=== PATIENT | female | born 2000 | race Two or more races ===

== ENCOUNTER 2024-11-19 11:18 | Outpatient (CLI) | payer OTHER | END 2024-11-19 11:28 | disposition home or self-care (01) | LOC: PRENATAL 11:18 | PROVIDERS: ATTEND Obstetrics & Gynecology Maternal & Fetal Medicine | DX: O26.849 Uterine size-date discrepancy, unspecified trimester (principal); O99.019 Anemia complicating pregnancy, unspecified trimester; Z14.8 Genetic carrier of other disease; O34.219 Maternal care for unspecified type scar from previous cesarean delivery; Z3A.17 17 weeks gestation of pregnancy ==

== ENCOUNTER 2024-12-09 11:22 | Outpatient (CLI) | payer OTHER | END 2024-12-09 11:23 | disposition home or self-care (01) | LOC: PRENATAL 11:22 | PROVIDERS: ATTEND Obstetrics & Gynecology Maternal & Fetal Medicine | DX: O44.00 Complete placenta previa NOS or without hemorrhage, unspecified trimester (principal); O34.219 Maternal care for unspecified type scar from previous cesarean delivery; Z3A.20 20 weeks gestation of pregnancy ==

== ENCOUNTER → 2025-04-01 11:13 | Outpatient (CLI) | payer OTHER | END | disposition home or self-care (01) | LOC: PRENATAL 11:13 | PROVIDERS: ATTEND Obstetrics & Gynecology Maternal & Fetal Medicine | DX: O26.849 Uterine size-date discrepancy, unspecified trimester (principal); O36.8199 Decreased fetal movements, unspecified trimester, other fetus; Z3A.34 34 weeks gestation of pregnancy ==

== ENCOUNTER 2025-04-26 02:19 | Inpatient (IN) | payer OTHER ==
[~2025-04-26] VITALS: Ht 170.2 cm; Wt 83.5 kg
[2025-04-26 01:41] VITALS: BP 122/77
[2025-04-26] MEDS ORDERED: RINGERS SOLUTION,LACTATED 1,000 ML IV SCH (02:30)
[2025-04-26 03:26] LABS: URINE APPEARANCE Clear; URINE BILIRRUBIN Negative (NEGATIVE); URINE BLOOD Small; URINE COLOR Yellow; URINE GLUCOSE Negative (NEGATIVE); URINE KETONE Negative (NEGATIVE); URINE LEUKOCYTE Negative; URINE NITRATE Negative; URINE PROTEIN Negative (NEGATIVE); URINE UROBILINOGEN 0.2 E.U./dl
[2025-04-26 03:27] LABS: BASO % 0.2 % (0.1-1.2); EOS # 0.09 (0.04-0.54); EOS % 0.9 % (0.7-7.0); LYMPH # 1.26 (1.18-3.74); LYMPH % 12.8 % (19.3-53.1); MEAN PLATELET VOLUME 12.00 fl (9.4-12.4); MONO # 0.62 (0.24-0.82); MONO % 6.3 % (4.7-12.5); NEUT # 7.81 (1.56-6.13); NEUT % 79.0 % (34.0-71.1); RED CELL DISTRIBUTION WIDTH 13.6 % (11.6-14.4)
[2025-04-26 03:30] LABS: URINE BACTERIA 796.5 uL (0.0-1933); URINE CAST 0.43 uL (0.0-1.40); URINE EPITHELIAL CELLS 12.9 uL (0.0-38.8); URINE RBC 3.2 uL (0.0-20.8); URINE WBC 17.6 uL (0.0-23.2)
[2025-04-26] MEDS ORDERED: PRENATAL TABLE1 EAC4 PO (03:47)
[2025-04-26 03:49] LABS: INR 0.95
[2025-04-26] MEDS ORDERED: MORPHINE SULFATE 4 MG/ML VIAL IV ONE (06:10)
[2025-04-26 06:35] VITALS: BP 113/72; O2SAT 98
[2025-04-26 11:00] VITALS: BP 114/72; O2SAT 100
[2025-04-26] MEDS ORDERED: MORPHINE SULFATE 4 MG/ML CARTRIDGE IV ONE (13:45)
[2025-04-26] MEDS ORDERED: ERYTHROMYCIN BASE OPHT 1GM EACH TUBE OP ONE (16:30)
[2025-04-26] MEDS ORDERED: OXYTOCIN 10 UNITS/ML VIAL IV ONE (16:30)
[2025-04-26] MEDS ORDERED: CEFAZOLIN SODIUM 1,000 MG VIAL IV ONE (16:30)
[2025-04-26] MEDS ORDERED: MORPHINE SULFATE 4 MG/ML CARTRIDGE IV SCH (17:00)
[2025-04-26 20:03] LABS: BASO % 0.1 % (0.1-1.2); EOS # 0.03 (0.04-0.54); EOS % 0.2 % (0.7-7.0); LYMPH # 0.95 (1.18-3.74); LYMPH % 7.0 % (19.3-53.1); MEAN PLATELET VOLUME 12.30 fl (9.4-12.4); MONO # 0.60 (0.24-0.82); MONO % 4.4 % (4.7-12.5); NEUT # 11.84 (1.56-6.13); NEUT % 87.8 % (34.0-71.1); RED CELL DISTRIBUTION WIDTH 13.5 % (11.6-14.4)
[2025-04-26 21:00] VITALS: BP 120/68
[2025-04-26] MEDS ORDERED: KETOROLAC TROMETHAMINE 60 MG VIAL IM ONE (22:00)
[2025-04-27] VITALS: BP 116/76
[2025-04-27] MEDS ORDERED: OxyCODONE HCL 5 MG TABLET (ROXICODONE) PO SCH (05:00)
[2025-04-27] MEDS ORDERED: PNV,CALCIUM 72/IRON/FOLIC ACID 1 TAB TABLET PO SCH (08:00)
[2025-04-27] MEDS ORDERED: SIMETHICONE 125 MG CAPSULE PO SCH (08:00)
[2025-04-27] MEDS ORDERED: DOCUSATE SODIUM 100MG CAP PO SCH (08:00)
[2025-04-27 08:17] VITALS: BP 110/73
[2025-04-27 12:15] VITALS: BP 105/66
[2025-04-27 16:00] VITALS: BP 126/76
[2025-04-28] VITALS: BP 119/76
[2025-04-28 09:28] VITALS: BP 115/74
[2025-04-28 16:00] VITALS: BP 100/61
[2025-04-29] VITALS: BP 114/75
[2025-04-29 09:33] VITALS: BP 116/73
== END 2025-04-29 17:00 | disposition home or self-care (01) | DRG 785 ==
LOC: LDR 02:19 → O/R 02:19 → OB/GYN 02:19 → O/R 14:48 → OB/GYN 17:24
PROVIDERS: Obstetrics & Gynecology; ADMIT Obstetrics & Gynecology; ATTEND Obstetrics & Gynecology
PROC: 0UB70ZZ Excision of Bilateral Fallopian Tubes, Open Approach (ICD-10-PCS; 2025-04-26)
PROC: 4A1HXCZ Monitoring of Products of Conception, Cardiac Rate, External Approach (ICD-10-PCS; 2025-04-26)
PROC: 10D00Z1 Extraction of Products of Conception, Low, Open Approach (ICD-10-PCS; principal; 2025-04-26 16:15)
DX: O34.211 Maternal care for low transverse scar from previous cesarean delivery (principal); Z30.2 Encounter for sterilization; Z3A.38 38 weeks gestation of pregnancy; Z37.0 Single live birth